=== PATIENT | male | born 1995 | race Caucasian/White ===

== ENCOUNTER 2017-05-20 11:16 | Emergency (ER) | payer MEDICAID, OTHER ==
[~2017-05-20] VITALS: Wt 79.0 kg
[2017-05-20] MEDS ORDERED: KETOROLAC 30 MG INJ IV STA (11:42)
[2017-05-20] MEDS ORDERED: SOD CHLORIDE 0.9% 1,000 ML IV STA (11:42)
[2017-05-20] MEDS ORDERED: AMPICILLIN/SULB 3 GM/NS (PMX) 100 ML IVPB STA (11:44)
[2017-05-20] MEDS ORDERED: CLINDAMYCIN 900 MG/D5W (PMX) 50 ML IVPB STA (11:49)
[2017-05-20] MEDS ORDERED: DEXAMETHASONE 10 MG/ML 1 ML INJ IV ONE (12:00)
[2017-05-20] MEDS ORDERED: ACETAMINOPHEN 650 MG SUPP PR ONE (12:00)
[2017-05-20 12:21] LABS: ABNORMAL IP MESSAGE 1; BASOPHILS % 0.2 % (0.0-2.0); HEMATOCRIT 45.3 % (42.0-52.0); HEMOGLOBIN 15.6 g/dl (14.0-18.0); LYMPHOCYTES # 1.2 10^3/ul (0.8-2.9); LYMPHOCYTES % 5.9 % (18.0-55.0); MEAN CORPUSCULAR HEMOGLOBIN 29.9 pg (29.0-33.0); MEAN CORPUSCULAR HGB CONC 34.4 g/dl (32.0-37.0); MEAN CORPUSCULAR VOLUME 86.8 fl (72.0-104.0); MEAN PLATELET VOLUME 9.9 fl (7.4-10.4); MONOCYTE # 1.8 10^3/ul (0.3-0.9); MONOCYTES % 8.7 % (0.0-13.0); NEUTROPHIL # 17.1 10^3/ul (1.6-7.5); NEUTROPHILS % 84.7 % (30.0-74.0); PLATELET COUNT 246 10^3/UL (140-415); POSITIVE DIFF @See below; RED BLOOD COUNT 5.22 10^6/ul (4.70-6.10); RED CELL DISTRIBUTION WIDTH 12.4 % (11.5-14.5); WHITE BLOOD COUNT 20.2 10^3/ul (4.8-10.8)
[2017-05-20 12:38] LABS: ALBUMIN 4.9 g/dl (3.3-4.9); ALBUMIN/GLOBULIN RATIO 1.22; BILIRUBIN,INDIRECT 0.9 mg/dl (0-1.1); BILIRUBIN,TOTAL 0.9 mg/dl (0.2-1.3); CREATININE 0.72 mg/dl (0.61-1.24); POTASSIUM 3.6 mmol/L (3.5-5.1); TOTAL PROTEIN 8.9 g/dl (6.1-8.1)
[2017-05-20] MEDS ORDERED: ACETAMINOPHEN 650MG/20.3ML CUP PO STA (12:45)
[2017-05-20] MEDS ORDERED: CLIN-73 PO (12:47)
[2017-05-20] MEDS ORDERED: ACET325T33 PO (12:47)
[2017-05-20 14:17] VITALS: BP 122/78; PULSE 76; RESP 20; TEMP 98.3
--- NOTE | 2017-05-20 15:36 | ERD ---
ER Documentation Chief Complaint Date/Time DATE: 05/20/17 TIME: 15:28 Chief Complaint SORE THROAT X 5 DAYS HPI This is a 22 year old male presents to the ER complaining of sore throat for the past 5 days. Patient states that the pain is progressively getting worse rating it 8 out of 10. Patient admits to having difficulty swallowing. He admits to having fever. He denies any cough, congestion. He states that he has not been able to eat much in the past 3 days. Denies any vomiting ROS All systems reviewed and are negative except as per history of present illness. Medications Home Meds Active Scripts Acetaminophen* (Tylenol*) 325 Mg Tablet, 2 TAB PO Q4 Y for PAIN AND OR ELEVATED TEMP, #20 TAB Prov:FABY RUFF PA-C 05/20/17 Clindamycin Hcl* (Clindamycin Hcl*) 300 Mg Capsule, 300 MG PO TID for 10 Days, CAP Prov:FABY RUFF PA-C 05/20/17 PMhx/Soc History of Surgery: No Anesthesia Reaction: No Hx Neurological Disorder: No Hx Respiratory Disorders: No Hx Cardiac Disorders: No Hx Psychiatric Problems: No Hx Miscellaneous Medical Probl: No Hx Alcohol Use: No Hx Substance Use: No Hx Tobacco Use: No Smoking Status: Never smoker Physical Exam Vitals Vital Signs Date Time Temp Pulse Resp B/P Pulse Ox O2 Delivery O2 Flow Rate FiO2 05/20/17 14:17 98.3 76 20 122/78 98 Room Air 05/20/17 11:24 101.3 112 18 126/76 99 Physical Exam GENERAL: well-developed/well-nourished, in no apparent distress, non-toxic appearing HEAD: NC/AT, no swelling noted in frontal or maxillary areas EARS: bilateral tympanic membrane is intact without erythema or effusion NARES: nares patent, rhinorrhea and congested THROAT: oropharynx erythematous peritonsillar swelling which is indurated no fluctuance absents felt or seen. Airways intact EYES: Conjunctiva normal NECK: Supple, no lymphadenopathy PULM: CTA bilaterally, no rales, rhonchi, or wheezing heard CV: Normal S1S2, RRR, good capillary refill GI: Soft, non-distended, normal bowel sounds, non-tender BACK: No midline tenderness, no masses EXT No clubbing, cyanosis, or edema NEURO: Alert and Orientated SKIN: Intact, normal turgor PSYCH: Normal mood and mentation Result Diagram: 05/20/17 1210 05/20/17 1210 Results 24 hrs Laboratory Tests Test 05/20/17 12:10 White Blood Count 20.210^3/ul Red Blood Count 5.2210^6/ul Hemoglobin 15.6g/dl Hematocrit 45.3% Mean Corpuscular Volume 86.8fl Mean Corpuscular Hemoglobin 29.9pg Mean Corpuscular Hemoglobin Concent 34.4g/dl Red Cell Distribution Width 12.4% Platelet Count 38219^3/UL Mean Platelet Volume 9.9fl Neutrophils % 84.7% Lymphocytes % 5.9% Monocytes % 8.7% Eosinophils % 0.0% Basophils % 0.2% Nucleated Red Blood Cells % 0.0/100WBC Neutrophils # 17.110^3/ul Lymphocytes # 1.210^3/ul Monocytes # 1.810^3/ul Eosinophils # 0.010^3/ul Basophils # 0.010^3/ul Nucleated Red Blood Cells # 0.010^3/ul Sodium Level 142mmol/L Potassium Level 3.6mmol/L Chloride Level 97mmol/L Carbon Dioxide Level 26mmol/L Anion Gap 23 Blood Urea Nitrogen 10mg/dl Creatinine 0.72mg/dl Glucose Level 108mg/dl Calcium Level 10.0mg/dl Total Bilirubin 0.9mg/dl Direct Bilirubin 0.00mg/dl Indirect Bilirubin 0.9mg/dl Aspartate Amino Transf (AST/SGOT) 12IU/L Alanine Aminotransferase (ALT/SGPT) 22IU/L Alkaline Phosphatase 89IU/L Total Protein 8.9g/dl Albumin 4.9g/dl Globulin 4.00g/dl Albumin/Globulin Ratio 1.22 Current Medications Medications (Trade) Dose Ordered Sig/Doreen Route PRN Reason Start Time Stop Time Status Last Admin Dose Admin Acetaminophen (Tylenol Supp) 650 mg ONCE ONCE HI 05/20/17 12:00 05/20/17 12:01 DC Ketorolac Tromethamine 30 mg 30 mg ONCE STAT IV 05/20/17 11:42 05/20/17 11:44 DC 05/20/17 12:20 Sodium Chloride (NS) 1,000 ml @ 1,000 mls/hr Q1H STAT IV 05/20/17 11:42 05/20/17 12:41 DC 05/20/17 12:15 Dexamethasone 10 mg 10 mg ONCE ONCE IV 05/20/17 12:00 05/20/17 12:01 DC 05/20/17 12:20 Ampicillin Sodium/ Sulbactam Sodium 100 ml @ 100 mls/hr ONCE STAT IVPB 05/20/17 11:44 05/20/17 11:50 DC Clindamycin HCl/ Dextrose (Cleocin 900 Mg/ D5W (Pmx)) 50 ml @ 50 mls/hr ONCE STAT IVPB 05/20/17 11:49 05/20/17 12:48 DC 05/20/17 11:49 Acetaminophen (Tylenol Liquid) 1,000 mg ONCE STAT PO 05/20/17 12:45 05/20/17 12:46 DC 05/20/17 14:06 Procedures/MDM This is a 22-year-old male presenting to the emergency department with peritonsillar cellulitis. On examination there was no evidence of peritonsillar abscess. No evidence of retropharyngeal abscess or sepsis. His airways are intact. He was febrile and was given Tylenol liquid, which fever trend downward. IV access established, patient was given 1 L fluids, clindamycin, Toradol and Decadron. Lab work was done in the ED, patient had evidence of leukocytosis likely due to stress reaction from the infection I have reassessed the patient and he significant feels a lot better. Patient stable to be discharged home with precautions to return to the emergency department for any worsening signs or symptoms. I have consulted my supervising physician Dr. Calixto who has also evaluated the patient who agrees with the plan above. Patient stable to be discharged home and he understands and agrees with this plan Departure Diagnosis: Primary Impression: Peritonsillar cellulitis Condition: Stable Patient Instructions: Peritonsillar Infection Abx Only, No I And D Additional Instructions: FOLLOW UP WITH YOUR PRIMARY CARE PHYSICIAN TOMORROW.Return to this facility if you are not improving as expected. Take all medicines as directed. Return to this facility if you are not improving as expected. FABY RUFF PA-C May 20, 2017 15:36
== END 2017-05-20 14:18 | disposition home or self-care (01) ==
LOC: FTE 11:16
DX: J36 Peritonsillar abscess (principal)
CPT/HCPCS: 80053; 85025; 96374; 96375; J1100; J1885; J7030; Z7502; Z7610; J0295

== ENCOUNTER 2017-05-22 13:16 | Emergency (ER) | payer MEDICAID ==
[~2017-05-22] VITALS: Ht 157.5 cm; Wt 56.5 kg
[~2017-05-22 13:16] MED LIST: ACET325T33 PO; CLIN-73 PO
[2017-05-22 13:22] VITALS: Ht 157.5 cm; Wt 56.5 kg
[2017-05-22] MEDS ORDERED: DEXAMETHASONE 10 MG/ML 1 ML INJ PO ONE (14:00)
[2017-05-22] MEDS ORDERED: DEXAMETHASONE 10 MG/ML 1 ML INJ IM ONE (14:00)
--- NOTE | 2017-05-22 14:04 | ERA ---
ER Documentation Chief Complaint Date/Time DATE: 05/22/17 TIME: 13:[address] HPI This is an otherwise healthy 22-year-old male returning to the emergency department after 2 days. Patient was given clindamycin and Tylenol for pharyngitis. Patient states he is still unable to swallow to return. Complains of odynophagia and dysphagia. Patient denies any difficulty breathing , shortness of breath, fever, change in voice or headache. Patient has no other complaints and describes no other associated manifestations ROS All systems reviewed and are negative except as per history of present illness. Medications Home Meds Active Scripts Methylprednisolone* (Medrol* DOSE PACK) 4 Mg/Dose-Pack Tab.ds.pk, 4 MG PO . DIRECTED, #1 PACKET Prov:ROBERT ANNA PA-C 05/22/17 Acetaminophen* (Tylenol*) 325 Mg Tablet, 2 TAB PO Q4 Y for PAIN AND OR ELEVATED TEMP, #20 TAB Prov:FABY RUFF PA-C 05/20/17 Clindamycin Hcl* (Clindamycin Hcl*) 300 Mg Capsule, 300 MG PO TID for 10 Days, CAP Prov:FABY RUFF PA-C 05/20/17 Discontinued Scripts Methylprednisolone* (Medrol* DOSE PACK) 4 Mg/Dose-Pack Tab.ds.pk, 4 MG PO . DIRECTED, #1 PACKET Prov:ROBERT ANNA PA-C 05/22/17 PMhx/Soc History of Surgery: No Anesthesia Reaction: No Hx Neurological Disorder: No Hx Respiratory Disorders: No Hx Cardiac Disorders: No Hx Psychiatric Problems: No Hx Miscellaneous Medical Probl: No Hx Alcohol Use: No Hx Substance Use: No Hx Tobacco Use: No Smoking Status: Never smoker Physical Exam Vitals Vital Signs Date Time Temp Pulse Resp B/P Pulse Ox O2 Delivery O2 Flow Rate FiO2 05/22/17 13:22 98.2 65 20 117/65 99 Physical Exam Const: [] Head: Atraumatic Eyes: Normal Conjunctiva ENT: Normal External Ears, Nose and Mouth. Neck: Full range of motion..~ No meningismus. Resp: Clear to auscultation bilaterally Cardio: Regular rate and rhythm, no murmurs Abd: Soft, non tender, non distended. Normal bowel sounds Skin: No petechiae or rashes Back: No midline or flank tenderness Ext: No cyanosis, or edema Neur: Awake and alert Psych: Normal Mood and Affect Results 24 hrs Current Medications Medications (Trade) Dose Ordered Sig/Doreen Route PRN Reason Start Time Stop Time Status Last Admin Dose Admin Dexamethasone (Decadron) 10 mg ONCE ONCE IM 05/22/17 14:00 05/22/17 14:00 DC Dexamethasone (Decadron) 10 mg ONCE ONCE PO 05/22/17 14:00 05/22/17 14:01 DC Procedures/MDM This is an otherwise healthy 22-year-old male returning to the ED with pharyngitis. Patient has been on clindamycin 2 days and Tylenol. Patient has not taken any other measures to relieve the symptoms. Physical examination was remarkable for bilateral exudates on the tonsils as well as edematous and erythematous tonsils with a deviated uvula. I enlisted the help of my supervising physician Dr. Patterson.No tripoding or dyspnea noted. Pulmonary exam was unremarkable. Able to handle own secretions no tripoding. Patient was given 10 mg of Decadron p.o. Patient is able to swallow in the emergency department. Reevaluation revealed improvement of symptoms. I recommend that the patient follow-up in 3 days if symptoms are persisting; return immediately if symptoms worsen; follow-up with ENT within the next 5 days no matter what. Patient has verbally acknowledged that he understands and agrees with his current condition and treatment plan. Patient's vitals are stable. I have no suspicion for endangerment of the airway at this time. Patient will be discharged with Medrol Dosepak and has been recommended to continue treatment prescribed by timothy mo PA-C. I have reviewed my findings with my attending Dr. Patterson who evaluated the patient himself and agrees with the aforementioned assessment and plan. Discharge medication; 1 Medrol Dosepak Departure Diagnosis: Primary Impression: Peritonsillar cellulitis Condition: Stable Additional Instructions: Follow up with your PCP within the next 1-3 days for a more thorough evaluation and a possible referral to a specialist. Return the the emergency department immediately if symptoms worsen or change. If you have any questions regarding medications, ask your pharmacist or us before you leave. If any adverse reactions occur while taking your medications, discontinue the treatment and return to the emergency department immediately. Take your medications as directed, and complete the entire course of treatment. ROBERT ANNA PA-C May 22, 2017 14:04
[2017-05-22] MEDS ORDERED: MED4DP PO (14:39)
== END 2017-05-22 15:24 | disposition home or self-care (01) ==
LOC: EDUNIT# 13:16 → FTE 13:16
DX: J36 Peritonsillar abscess (principal)
CPT/HCPCS: J1100; Z7502; 99283

== ENCOUNTER 2018-04-03 09:29 | Emergency (ER) | END 2018-04-03 11:25 | disposition home or self-care (01) ==